=== PATIENT | male | born 1995 | race Caucasian/White ===

== ENCOUNTER 2016-08-23 23:41 | Emergency (ER) | payer OTHER ==
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
== END 2016-08-24 00:32 | disposition disaster alternative care site (69) ==
LOC: GACC 23:41
DX: S41.051A Open bite of right shoulder, initial encounter (principal); F17.210 Nicotine dependence, cigarettes, uncomplicated; Z88.5 Allergy status to narcotic agent; Y04.1XXA Assault by human bite, initial encounter